=== PATIENT | female | born 1960 | race Caucasian/White ===

== ENCOUNTER 2018-05-10 07:21 | Emergency (ER) | payer MEDICAID, OTHER ==
[2018-05-10 07:32] VITALS: BP 129/79; PULSE 74; RESP 20; TEMP 98.2; O2SAT 98
--- NOTE | 2018-05-10 08:24 | C.PDOC ---
History Of Present Illness 58 yo female come sin for evaluation of Right knee pain, mild swelling gradually developed for past 1-2 weeks. Pt sts, pain is localized over Right knee, worse with weight bearing. Otherwise, pt denies known direct trauma or injury, fever, chills, denies deformity to Right leg, weakness, calf pain, sensory or vascular deficits to Right leg. Ambulate to Ed for evaluation, not in any apparent distress. Time Seen by Provider: 05/10/18 07:35 Chief Complaint (Nursing): Lower Extremity Problem/Injury History Per: Patient Past Medical History Reviewed: Historical Data, Nursing Documentation, Vital Signs Vital Signs: Last Vital Signs Temp 98.2 F 05/10/18 07:28 Pulse 74 05/10/18 07:28 Resp 20 05/10/18 07:28 BP 129/79 05/10/18 07:28 Pulse Ox 98 05/10/18 07:28 - Medical History PMH: Asthma, Hypercholesterolemia, Hypothyroidism Family History: States: Unknown Family Hx - Social History Hx Tobacco Use: No Hx Alcohol Use: No Hx Substance Use: No - Immunization History Hx Tetanus Toxoid Vaccination: No Hx Influenza Vaccination: No Hx Pneumococcal Vaccination: No Review Of Systems Except As Marked, All Systems Reviewed And Found Negative. Constitutional: Negative for: Fever, Chills ENT: Negative for: Throat Pain Musculoskeletal: Positive for: Other (Right knee pain) Skin: Negative for: Rash, Bruising Neurological: Negative for: Weakness, Numbness Physical Exam - Physical Exam Appears: Well, Non-toxic, No Acute Distress Skin: Normal Color, Warm, No Ecchymosis Head: Atraumatic, Normacephalic Extremity: Normal ROM (FAROM of Right knee with mild discomofrt to Right knee flexion due to pain.), Tenderness (over anterior medial and lateral aspect Right knee with mild nos edema. No palpable deofmrity, no skin chamges.), No Calf Tenderness (Right), Capillary Refill (less than2 sec to Right foot), No Deformity Extremity: Bilateral: Atraumatic Pulses: Right Dorsalis Pedis: Normal Neurological/Psych: Oriented x3, Normal Speech, Normal Motor, Normal Sensation, Normal Reflexes ED Course And Treatment O2 Sat by Pulse Oximetry: 98 Pulse Ox Interpretation: Normal - Other Rad Right knee X-Ray: Interpreted by Me, Viewed By Me Interpretation: (+) mild djd, no acute fx Progress Note: On re-eval, pt is afebrile, hemodynamicaly stable. Non-toxic. Ambulatory in ED. Right knee: mild tenderness over ant.med/late aspec knee with mild nos edema. No deformity. FAROM, no neurovascular deficits. NO calf tenderness over right leg, no palpable vein. Imagings review (-) acute fx or dislocation of Right knee. Justice wrap applied to Right knee. Pt advised. ref. to f/u with Ortho Clinic for re-evaluation. return if any new chnages. Disposition Counseled Patient/Family Regarding: Studies Performed, Diagnosis, Need For Followup, Rx Given - Disposition Referrals: [facility] [Outside] Disposition: HOME/ ROUTINE Disposition Time: 08:10 Condition: STABLE Additional Instructions: Justice wrap/knee brace to Right knee for 1-2 weeks take medication as prescribed Avoid prolong walking, knee bend for 2-3 weeks Follow up with Ortho Clinic in 2-3 days for re-evaluation. return if any new changes. Prescriptions: Prednisone [Deltasone] 40 mg PO DAILY #3 tablet traMADol [Ultram] 50 mg PO TID #7 tab Instructions: Knee Pain (DC), Osteoarthritis (DC) Forms: [facility] (Greenlandic), Work Excuse - Clinical Impression Clinical Impression: Arthralgia of knee
--- NOTE | 2018-05-10 10:10 | RAD ---
PROCEDURE: Right Knee Radiographs. HISTORY: pain COMPARISON: No prior. FINDINGS: BONES: No acute displaced fracture. Mild degenerative changes including tenting of the intercondylar notch. JOINTS: No dislocation. JOINT EFFUSION: No significant joint effusion. OTHER FINDINGS: None. IMPRESSION: Mild degenerative changes. No acute displaced fracture, dislocation, or significant joint effusion identified. If symptoms persist, or if there is continued clinical concern, x-ray follow-up in 7-10 days should be considered.
== END 2018-05-10 09:08 | disposition home or self-care (01) ==
LOC: C.ER 07:21
DX: M25.561 Pain in right knee (principal)